=== PATIENT | female | born 1995 | race Caucasian/White ===

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

== ENCOUNTER 2017-05-31 19:53 | Emergency (ER) | payer OTHER ==
[~2017-05-31] VITALS: Ht 170.2 cm; Wt 62.7 kg
[~2017-05-31 19:53] MED LIST: ACET50TA PO; COLA100C5 PO; MOTR200T44 PO; PRENTAB9 PO
--- NOTE | 2017-05-31 22:28 | REP ---
Clinical: Pain. Technique: AP, lateral, bilateral oblique and sunrise views left knee. Findings: The osseous structures and joint spaces are intact and normal. There is no evidence for acute fracture or dislocation. No joint effusion is appreciated. Surrounding soft tissues are unremarkable. No subcutaneous emphysema or radiodense foreign body. Impression: Normal examination. No acute fracture or dislocation. Signed by Alex Guerra MD 05/31/2017 10:20 P
[2017-05-31 22:52] VITALS: BP 107/66
== END 2017-05-31 22:56 | disposition home or self-care (01) ==
LOC: M ED 19:53
DX: S83.412A Sprain of medial collateral ligament of left knee, initial encounter (principal); X50.1XXA Overexertion from prolonged static or awkward postures, initial encounter; Y92.89 Other specified places as the place of occurrence of the external cause; Y93.89 Activity, other specified; Y99.8 Other external cause status

== ENCOUNTER 2022-03-31 16:47 | Emergency (ER) | payer OTHER ==
[~2022-03-31] VITALS: Ht 170.2 cm; Wt 68.6 kg
[~2022-03-31 16:47] MED LIST changes: -ACET50TA PO; +MAPA500T2 PO
[2022-03-31 19:43] LABS: BASO % 0.3 % (0.0-1.0); HEMATOCRIT 29.6 % (36.0-47.0); HEMOGLOBIN 7.9 g/dl (12.0-15.5); LYMPH # 1.3 10^3/uL (1.5-5.0); LYMPH % 22.7 % (24.0-44.0); MEAN CORPUSCULAR HEMOGLOBIN 16.9 pg (27.0-33.0); MEAN CORPUSCULAR HGB CONC 26.7 g/dl (32.0-36.5); MEAN CORPUSCULAR VOLUME 63.4 fl (80.0-96.0); MONO # 0.4 10^3/uL (0.0-0.8); MONO % 6.2 % (2.0-8.0); NEUTROPHILS # 4.1 10^3/uL (1.5-8.5); NEUTROPHILS % 70.5 % (36.0-66.0); PLATELET COUNT, AUTOMATED 292 10^3/uL (150-450); RED BLOOD COUNT 4.67 10^6/uL (4.00-5.40); WHITE BLOOD COUNT 5.8 10^3/uL (4.0-10.0)
[2022-03-31 19:52] LABS: INR 1.01; PROTHROMBIN TIME 13.7 SECONDS (12.7-14.5)
[2022-03-31 20:12] LABS: BLOOD UREA NITROGEN 6 MG/DL (7-18); CARBON DIOXIDE LEVEL 23 MEQ/L (21-32); CHLORIDE LEVEL 111 MEQ/L (98-107); CREATININE FOR GFR 0.69 MG/DL (0.55-1.30); GLOMERULAR FILTRATION RATE > 60.0 (>60); GLUCOSE, FASTING 127 MG/DL (70-100); SODIUM LEVEL 142 MEQ/L (136-145)
[2022-03-31 20:55] LABS: FERRITIN 3 NG/ML (8-252); IRON (FE) 9 UG/DL (50-170); PERCENT SATURATION 1.7 % (13.2-45.0); TOTAL IRON BINDING CAPACITY 532 UG/DL (250-450)
[2022-03-31 21:29] LABS: VITAMIN B12 LEVEL 394 PG/ML (247-911)
[2022-03-31 22:26] VITALS: BP 142/77
[2022-03-31 22:42] VITALS: BP 150/87
[2022-03-31 23:33] VITALS: BP 137/71
[2022-03-31] MEDS ORDERED: IRON325T9 PO (23:39)
[2022-03-31] MEDS ORDERED: VITA250T4 PO (23:39)
[2022-04-01 00:25] VITALS: BP 122/68
[2022-04-01 01:31] VITALS: BP 122/68
[2022-04-01 01:45] VITALS: BP 143/83
[2022-04-01 02:50] VITALS: BP 137/74
[2022-04-01 03:48] VITALS: BP 139/86
== END 2022-04-01 04:20 | disposition home or self-care (01) ==
LOC: M ED 16:47
DX: D64.9 Anemia, unspecified (principal)
CPT/HCPCS: 36430; 80048; 82607; 82728; 83550; 85025; 85046; 85610; 86850; 86900; 86901; 86920; 99284; P9016

== ENCOUNTER → 2022-05-19 | Outpatient (CLI) | payer OTHER ==
[~2022-05-19] MED LIST changes: +IRON325T9 PO; +VITA250T4 PO
[2022-05-19 10:51] LABS: HEMATOCRIT 39.3 % (36.0-47.0); HEMOGLOBIN 11.2 g/dl (12.0-15.5); MEAN CORPUSCULAR HEMOGLOBIN 21.1 pg (27.0-33.0); MEAN CORPUSCULAR HGB CONC 28.5 g/dl (32.0-36.5); MEAN CORPUSCULAR VOLUME 74.2 fl (80.0-96.0); PLATELET COUNT, AUTOMATED 301 10^3/uL (150-450); WHITE BLOOD COUNT 3.5 10^3/uL (4.0-10.0)
[2022-05-19 11:34] LABS: FERRITIN 3 NG/ML (8-252); LDH LACTATE DEHYDROGENASE 161 U/L (84-246)
[2022-05-21 16:08] LABS: FACTOR 8 RISTOCETIN COFACTOR 64 % (50-200); FACTOR VIII ACTIVITY 132 % (56-140); FACTOR VIII AG (VON WILLEBRAN) 154 % (50-200)
== END ==
LOC: M PLALAB 09:10
PROVIDERS: ATTEND Internal Medicine Hematology
DX: D50.9 Iron deficiency anemia, unspecified (principal)
CPT/HCPCS: 36415; 82728; 83615; 85027; 85046; 85240; 85245; 85246; G0463

== ENCOUNTER 2022-05-21 12:25 | Outpatient (CLI) | payer OTHER ==
[~2022-05-21] VITALS: Ht 170.2 cm; Wt 68.0 kg
[~2022-05-21 12:25] MED LIST changes: +ALBUTEROL SULFATE 2.5 MG/0.5 ML INH NEB SOLN INH PRN; +EPINEPHrine INJ 1 MG/ML 1ML AMP IM PRN; +FERRIC CARBOXYMALTOSE INJ 750 MG in NS 250 ML (>50kg) IV ONE; +NS 1,000 ML IV SCH; +diphenhydrAMINE 50MG/ML VIAL (J1200) IV PRN; +methylPREDNISolone 125MG 2ML VIAL IV PRN
[2022-05-21 12:47] VITALS: BP 122/83
[2022-05-21 13:30] VITALS: BP_SYST 121; BP_SYST 131; BP_DIAS 68
[2022-05-21 14:04] VITALS: BP 121/68
== END 2022-05-21 14:00 | disposition home or self-care (01) ==
LOC: M INFU 12:25
PROVIDERS: ATTEND Internal Medicine Hematology
DX: D50.9 Iron deficiency anemia, unspecified (principal)
CPT/HCPCS: 96365; J1439

== ENCOUNTER 2022-06-04 14:10 | Outpatient (CLI) | payer OTHER ==
[~2022-06-04] VITALS: Ht 170.2 cm; Wt 68.0 kg
[2022-06-04 14:20] VITALS: BP 145/63
[2022-06-04 15:36] VITALS: BP 138/59
== END 2022-06-04 15:30 | disposition home or self-care (01) ==
LOC: M INFU 14:10
PROVIDERS: ATTEND Internal Medicine Hematology
DX: D50.9 Iron deficiency anemia, unspecified (principal)
CPT/HCPCS: 96365; J1439

== ENCOUNTER → 2024-05-24 | Outpatient (REF) ==
[~2024-05-24] MED LIST changes: -ALBUTEROL SULFATE 2.5 MG/0.5 ML INH NEB SOLN INH PRN; -EPINEPHrine INJ 1 MG/ML 1ML AMP IM PRN; +FERR325T14 PO; -FERRIC CARBOXYMALTOSE INJ 750 MG in NS 250 ML (>50kg) IV ONE; -IRON325T9 PO; -NS 1,000 ML IV SCH; +VITA250T27 PO; -VITA250T4 PO; -diphenhydrAMINE 50MG/ML VIAL (J1200) IV PRN; -methylPREDNISolone 125MG 2ML VIAL IV PRN
== END ==
LOC: M EMP 15:05
PROVIDERS: ATTEND Family Medicine
DX: Z11.52 Encounter for screening for COVID-19 (principal)

== ENCOUNTER → 2025-01-18 | Outpatient (REF) | payer OTHER ==
[2025-01-18 17:47] LABS: Trichomonas vaginalis (AMP) NOT DETECTED (NEGATIVE)
[2025-01-18 18:11] LABS: GC DNA AMPLIFICATION NEGATIVE (NEGATIVE)
== END ==
LOC: M PLALAB 09:03
PROVIDERS: ATTEND Obstetrics & Gynecology
DX: Z34.81 Encounter for supervision of other normal pregnancy, first trimester (principal)

== ENCOUNTER → 2025-01-29 | Outpatient (CLI) | payer OTHER ==
[2025-01-29 14:12] LABS: HEMATOCRIT 36.9 % (36.0-47.0); HEMOGLOBIN 11.1 g/dl (12.0-15.5); MEAN CORPUSCULAR HEMOGLOBIN 24.2 pg (27.0-33.0); MEAN CORPUSCULAR HGB CONC 30.1 g/dl (32.0-36.5); MEAN CORPUSCULAR VOLUME 80.4 fl (80.0-96.0); PLATELET COUNT, AUTOMATED 252 10^3/uL (150-450); RED BLOOD COUNT 4.59 10^6/uL (4.00-5.40); WHITE BLOOD COUNT 6.5 10^3/uL (4.0-10.0)
[2025-01-29 16:30] LABS: FERRITIN 3.7 NG/ML (7.3-270.7)
[2025-01-29 16:54] LABS: HIV 1&2 SCREEN NEGATIVE (NEGATIVE)
[2025-01-29 17:03] LABS: HEPATITIS C VIRUS ABY INDEX 0.04 INDEX (<0.8)
== END ==
LOC: M PLALAB 10:04
PROVIDERS: ATTEND Obstetrics & Gynecology
DX: Z34.81 Encounter for supervision of other normal pregnancy, first trimester (principal)

== ENCOUNTER → 2025-01-30 | Outpatient (CLI) | payer OTHER | LOC: M PLALAB 14:05 | PROVIDERS: ATTEND Obstetrics & Gynecology | DX: O36.0910 Maternal care for other rhesus isoimmunization, first trimester, not applicable or unspecified (principal) ==

== ENCOUNTER 2025-04-16 12:08 | Outpatient (CLI) | payer OTHER ==
[~2025-04-16] VITALS: Ht 170.2 cm; Wt 71.8 kg
[~2025-04-16 12:08] MED LIST changes: +ALBUTEROL SULFATE 2.5 MG/0.5 ML INH CONCENTRATE NEB SOLN INH PRN; +EPINEPHrine INJ 1 MG/ML 1ML AMP IM PRN; +diphenhydrAMINE 50 MG/ML VIAL IV PRN
[2025-04-16] MEDS: FERRIC CARBOXYMALTOSE 750 MG (VIAL MATE) IN 100ML NS IV ONE (12:30)
[2025-04-16] MEDS: ACETAMINOPHEN 650 MG PO ONE (12:30)
[2025-04-16 12:32] VITALS: BP 118/73; O2SAT 99
[2025-04-16 12:52] VITALS: BP 105/66; O2SAT 99
== END 2025-04-16 12:55 ==
LOC: M INFU 12:08
PROVIDERS: ATTEND Obstetrics & Gynecology
DX: D64.9 Anemia, unspecified (principal)
CPT/HCPCS: 96365; J1439

== ENCOUNTER 2025-04-23 12:35 | Outpatient (CLI) | payer OTHER ==
[~2025-04-23] VITALS: Ht 170.2 cm; Wt 73.6 kg
[~2025-04-23 12:35] MED LIST changes: +ACETAMINOPHEN 650 MG PO ONE
[2025-04-23 13:00] VITALS: BP 115/63; O2SAT 100
[2025-04-23] MEDS: FERRIC CARBOXYMALTOSE 750 MG (VIAL MATE) IN 100ML NS IV ONE (13:16)
[2025-04-23 13:40] VITALS: BP 120/74; O2SAT 98
== END 2025-04-23 13:45 | disposition home or self-care (01) ==
LOC: M INFU 12:35
PROVIDERS: ATTEND Obstetrics & Gynecology
DX: D64.9 Anemia, unspecified (principal)
CPT/HCPCS: 96365; J1439

== ENCOUNTER → 2025-05-29 | Outpatient (CLI) | payer OTHER ==
[~2025-05-29] MED LIST changes: -ACETAMINOPHEN 650 MG PO ONE; -ALBUTEROL SULFATE 2.5 MG/0.5 ML INH CONCENTRATE NEB SOLN INH PRN; -EPINEPHrine INJ 1 MG/ML 1ML AMP IM PRN; -diphenhydrAMINE 50 MG/ML VIAL IV PRN
[2025-05-29 14:24] LABS: GLUCOSE CHALLENGE TEST 1 HOUR 99 MG/DL (LESS THAN 140)
[2025-05-29 14:27] LABS: IRON (FE) 93 UG/DL (50-170); PERCENT SATURATION 26.5 % (13.2-45.0)
[2025-05-29 14:41] LABS: PLATELET COUNT, AUTOMATED 217 10^3/uL (150-450)
[2025-05-29 15:00] LABS: HIV 1&2 SCREEN NEGATIVE (NEGATIVE)
[2025-05-29 15:08] LABS: HEPATITIS C VIRUS ABY INDEX < 0.02 INDEX (<0.8)
[2025-05-29 15:34] LABS: Trichomonas vaginalis (AMP) NOT DETECTED (NEGATIVE)
[2025-05-29 15:57] LABS: GC DNA AMPLIFICATION NEGATIVE (NEGATIVE)
== END ==
LOC: M PLALAB 08:50
PROVIDERS: ATTEND Obstetrics & Gynecology
DX: Z34.92 Encounter for supervision of normal pregnancy, unspecified, second trimester (principal); O99.012 Anemia complicating pregnancy, second trimester

== ENCOUNTER → 2025-06-13 | Outpatient (CLI) | payer OTHER | LOC: M WHC 12:24 | PROVIDERS: ATTEND Obstetrics & Gynecology | DX: O26.842 Uterine size-date discrepancy, second trimester (principal) ==

== ENCOUNTER → 2025-07-25 | Outpatient (REF) | payer OTHER | LOC: M SFHCWAGY 15:07 | PROVIDERS: ATTEND Obstetrics & Gynecology | DX: Z34.93 Encounter for supervision of normal pregnancy, unspecified, third trimester (principal) ==

== ENCOUNTER 2025-08-23 07:42 | Inpatient (IN) | payer OTHER ==
[2025-08-23] VITALS (18 sets, daily range): BP systolic 93–141; BP diastolic 55–93
[~2025-08-23] VITALS: Ht 170.2 cm; Wt 81.6 kg
[2025-08-23] MEDS ORDERED: HOME MED LIST COMPLETE! XX SCH (08:00)
[2025-08-23] MEDS ORDERED: PENICILLIN G POTASSIUM 5 MU IV 5 MU in DEXTROSE 5% (D5W) MINI-BAG PLU 100 ML IV STA (08:42)
[2025-08-23] MEDS ORDERED: OXYTOCIN DRIP 30 UNITS in IV 1 EA IV PRN (08:45)
[2025-08-23] MEDS ORDERED: OXYTOCIN INJ 10UNITS/ML 1ML VIAL IV PRN (08:45)
[2025-08-23] MEDS ORDERED: OXYTOCIN INJ 10UNITS/ML 1ML VIAL IM PRN (08:45)
[2025-08-23] MEDS ORDERED: LIDOCAINE 1% MDV 20 ML VIAL INFIL PRN (08:45)
[2025-08-23] MEDS: LR 1,000 ML IV SCH ×2 (08:45→20:04)
[2025-08-23] MEDS ORDERED: CARBOPROST TROMETHAMINE 250 MCG/ML AMP IM PRN (08:45)
[2025-08-23] MEDS ORDERED: **PENDING PCN ENTRY XX SCH (09:00)
[2025-08-23] MEDS: miSOPROStol 50 MCG 1/2 TABLET PO PRN (09:06)
[2025-08-23] MEDS: PENICILLIN G POTASSIUM 5 MU IV 5 MU in DEXTROSE 5% (D5W) MINI-BAG PLU 100 ML IV STA (09:19)
[2025-08-23 10:27] LABS: PLATELET COUNT, AUTOMATED 197 10^3/uL (150-450)
[2025-08-23 11:43] LABS: HIV 1&2 SCREEN NEGATIVE (NEGATIVE)
[2025-08-23 11:51] LABS: HEPATITIS C VIRUS ABY INDEX < 0.02 INDEX (<0.8)
[2025-08-23] MEDS ORDERED: PEN G POT 3,000,000 UNIT/50 ML 3,000,000 UNIT in IV 1 EA IV SCH (12:45)
[2025-08-23] MEDS: PEN G POT 3,000,000 UNIT/50 ML 3,000,000 UNIT in IV 1 EA IV SCH (13:32)
[2025-08-23] MEDS: LR 500 ML IV ONE (17:03)
[2025-08-23] MEDS: OXYTOCIN DRIP 30 UNITS in IV 1 EA IV SCH (20:04)
[2025-08-23] MEDS: BUTORPHANOL 2 MG/ML 1 ML VIAL IV ONE (22:45)
[2025-08-23] MEDS ORDERED: FENTANYL 2 MCG/ML ROPIVACAINE 0.2% IN 0.9% NACL 100 ML IVBAG As Ordered ONE (23:23)
[2025-08-23] MEDS ORDERED: NALOXONE INJ 0.4 MG/1 ML VIAL IV PRN (23:25)
[2025-08-23] MEDS ORDERED: EPIDURAL/PCA KEYS XX PRN (23:25)
[2025-08-23] MEDS ORDERED: LR 500 ML IV PRN (23:25)
[2025-08-23] MEDS ORDERED: diphenhydrAMINE 50 MG/ML VIAL IV PRN (23:25)
[2025-08-23] MEDS ORDERED: ONDANSETRON 4MG/2ML VIAL IV PRN (23:25)
[2025-08-24] VITALS (24 sets, daily range): BP systolic 92–134; BP diastolic 57–94; O2SAT 98–99
[2025-08-24] MEDS: FENTANYL/ROPIVACAINE/NACL BAG 100 ML EPIDURAL SCH (00:01)
[2025-08-24] MEDS: OXYTOCIN DRIP 30 UNITS in IV 1 EA IV PRN ×2 (01:17→01:45)
[2025-08-24 01:19] LABS: CORD GAS ABE A -8.2; CORD GAS HCO3 A 21.4 MMOL/L; CORD GAS O2 SAT A 45.2 %; CORD GAS PCO2 A 59.9 mmHg; CORD GAS PH A 7.171 UNITS; CORD GAS PO2 A 25.7 mmHg; CORD GAS SBC A 16.8 MMOL/L; CORD GAS TCO2 A 23.2 MMOL/L
[2025-08-24 01:19] LABS: CORD GAS ABE V -6.2; CORD GAS HCO3 V 20.5 MMOL/L; CORD GAS O2 SAT V 45.4 %; CORD GAS PCO2 V 44.8 mmHg; CORD GAS PH V 7.279 UNITS; CORD GAS PO2 V 23.3 mmHg; CORD GAS SBC V 18.2 MMOL/L; CORD GAS TCO2 V 21.9 MMOL/L
[2025-08-24] MEDS: TRANEXAMIC ACID INJection 1,000 MG in NS 100 ML IV PRN (01:41)
[2025-08-24] MEDS ORDERED: RHOGAM 300MCG (1500IU) INJ IM SCH (01:50)
[2025-08-24] MEDS ORDERED: CALCIUM CARBONATE 500 MG CHEW U/D PO PRN (01:50)
[2025-08-24] MEDS ORDERED: MOM 30 ML SUSPENSION UDC PO PRN (01:50)
[2025-08-24] MEDS: METHYLERGONOVINE MALEATE 0.2 MG/ML 1 ML VIAL IM PRN (02:34)
[2025-08-24] MEDS: IBUPROFEN 800 MG TAB PO PRN (02:56)
[2025-08-24] MEDS: PRENATAL VITAMINS CHEWABLE TABLET PO SCH (08:19)
[2025-08-24] MEDS: FERROUS SULFATE 325 MG TAB PO SCH (08:19)
[2025-08-24] MEDS: ACETAMINOPHEN 500 MG TAB PO PRN (08:20)
[2025-08-24] MEDS: DIBUCAINE 1% OINTMENT 30 GM TOP PRN (09:44)
[2025-08-24] MEDS: DOCUSATE SODIUM 100 MG CAPSULE PO PRN (13:11)
[2025-08-24] MEDS: ANUSOL HC CREAM 30 GM TOP PRN (19:10)
[2025-08-25 05:50] VITALS: BP 107/63; O2SAT 99
[2025-08-26] MEDS ORDERED: MEASLES,MUMPS,RUBELLA VACCINE INJ (MMR-II) SC.IMMUN ONE (09:00)
== END 2025-08-25 18:15 | disposition home or self-care (01) | DRG 768 ==
LOC: M LDI 07:42 → M OBS 08-24 08:36
PROVIDERS: ADMIT Obstetrics & Gynecology; ATTEND Obstetrics & Gynecology
PROC: 0DQR0ZZ Repair Anal Sphincter, Open Approach (ICD-10-PCS; principal; 2025-08-23)
PROC: 3E033VJ Introduction of Other Hormone into Peripheral Vein, Percutaneous Approach (ICD-10-PCS; 2025-08-23)
PROC: 10907ZC Drainage of Amniotic Fluid, Therapeutic from Products of Conception, Via Natural or Artificial Opening (ICD-10-PCS; 2025-08-23)
PROC: 10E0XZZ Delivery of Products of Conception, External Approach (ICD-10-PCS; 2025-08-24)
DX: O99.02 Anemia complicating childbirth (principal); Z37.0 Single live birth; O70.21 Third degree perineal laceration during delivery, IIIa; O99.824 Streptococcus B carrier state complicating childbirth; D64.9 Anemia, unspecified; Z79.899 Other long term (current) drug therapy; Z3A.39 39 weeks gestation of pregnancy